=== PATIENT | female | born 2000 | race Caucasian/White ===

== ENCOUNTER 2025-05-08 20:10 | Inpatient (IN) | payer BC, SELFPAY ==
[2025-05-08 20:21] VITALS: BP 125/84; PULSE 104; O2SAT 97
[2025-05-08 20:25] VITALS: BP 144/85; PULSE 105; RESP 16; TEMP 36.6; O2SAT 97
[2025-05-08 21:27] VITALS: BMI 19.5
[2025-05-08 22:20] LABS: Hematocrit 43.3 % (37.0-47.0); Hemoglobin 15.2 g/dl (12.0-16.0); Imm Gran Abs Auto 0.02 X10*3/uL (0.00-0.03); Imm Gran Pct Auto 0.2 % (0.0-0.4); Lymphocytes Absolute Auto 3.7 X10*3/uL (1.2-4.9); MANUAL DIFF FLAG NO; Mean Corpuscular HGB Conc 35.1 g/dl (31.0-35.0); Mean Corpuscular Hemoglobin 31.5 pg (27.0-33.0); Mean Corpuscular Volume 89.6 fL (80.0-98.0); NRBC Abs Auto 0.000 X10*3/uL (0.0-0.012); NRBC Pct Auto 0.0 /100WBC (0.0-0.2); Platelet Count 298 X10*3/uL (160-400); Red Blood Count 4.83 X10*6/uL (4.20-5.50); White Blood Count 9.9 X10*3/uL (4.8-10.8)
--- OUTSIDE RECORDS SUMMARY | 2025-05-08 22:23 | XMS_ITS | Encounter Summary ---
Author Organization [facility] Address [address] [place] [phone] Phone Care Team Providers Care Boiler Installer Name Role Phone Unavailable Primary Care Provider Unavailabl e Encounter Details Date Type Department Care Team (Late st Contact Info) Description 03/20/2017 Conversion Encounter [facility] - [address] [address] Social History Tobacco Use Types Packs/Day Years Used Date Smoking Tobacco: Never Comments:Never smoker Comments Unknown Sex and Gender Information Value Date Recorded Sex Assigned at Not on file Legal Sex Female 5:23 PM EDT Gender Identity Not on file Sexual Orientation Not on file documented as of this encounter Plan of Treatment Not on file documented as of this encounter Visit Diagnoses Not on filedocumented in this encounter
--- OUTSIDE RECORDS SUMMARY | 2025-05-08 22:23 | XMS_ITS | Encounter Summary ---
Author Organization [facility] Address [address] [place] [address] Phone Care Team Providers Care Nylon Operator Name Role Phone Unavailable Primary Care Provider Unavailabl e Encounter Details Date Type Department Care Team (Late st Contact Info) Description 10/10/2016 Documentation [facility] Family Medicine [address] [place] [address] Family Medicine, Physician [address] [place] [address] Social History Tobacco Use Types Packs/Day Years [...]
--- OUTSIDE RECORDS SUMMARY | 2025-05-08 22:23 | XMS_ITS | Encounter Summary ---
Author Organization [facility] Address [address] [place] [phone] Phone Care Team Providers Care Brief Writer Name Role Phone Unavailable Primary Care Provider Unavailabl e Encounter Details Date Type Department Care Team (Late st Contact Info) Description 10/11/2016 Documentation [facility] Family Medicine [address] [place] [address] Family Medicine, Physician [address] [place] [address] Social History Tobacco Use Types Packs/Day Years [...]
--- OUTSIDE RECORDS SUMMARY | 2025-05-08 22:23 | XMS_ITS | Encounter Summary ---
Author Organization [facility] Address [address] [place] [address] Care Team Providers Care Sidewalk Repairer Name Role Phone Pamela Laboy MD Primary Care Provider [phone] Encounter Details Date Type Department Care Team (Late st Contact Info) Description 04/20/2025 Telephone [facility] - [facility] [address] [facility] [address] [place] [address] Pamela Laboy MD [address] [facility] [address] [place] [address] Social History Tobacco Use Types Packs/Day Years Used Date Smoking Tobacco: Former Smokeless Tobacco: Current Alcohol Use Standard Drinks/Week Comments Yes 0 (1 standard drink = 0.6 oz pur e alcohol) Comments No Sex and Gender Information Value Date Recorded Sex Assigned at Female 09/17/2024 2:27 PM EST Legal Sex Female 5:14 AM EST Gender Identity Female 09/17/2024 2:27 PM EST Sexual Orientation Not on file 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 Referral completed and closed. Thank you. documented in this encounter Plan of Treatment Not on file documented as of this encounter Visit Diagnoses Not on filedocumented in this encounter Care Teams Sidewalk Repairer Relationship Specialty Start Date End Date Pamela Laboy MD [address] [place] [address] PCP - General Internal Medicine 01/17/25 documented as of this encounter
--- OUTSIDE RECORDS SUMMARY | 2025-05-08 22:23 | XMS_ITS | Clinical Summary ---
Author Organization [facility] Address [address] [place] [address] Phone Care Team Providers Care Art Dealer Name Role Phone Unavailable Primary Care Provider Unavailabl e Allergies No known active allergies Medications TRI-PREVIFEM 0.18/0.215/0.25 MG-35 MCG per tabletIndication s:Pyelonephritis Take 1 tablet by mouth daily. 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 Vitamin D deficiency 11/13/2012 Intermittent asthma, well controlled 11/13/2012 Immunizations Immunization Administration Dates Next Due DTaP 5 04/14/2003, 1,1999,07/31,1999 HPV, Quadrivalent 04/22/2012,12/12/2010,10/12/19 11 Hep A, ped/adol 02/07/2015,11/09/2013 Hep B, ped/adol 10/02/2000,03/31/2000,1999 Hib (PRP-T) 07/10/2000, 0,1999,05/31 IPV 04/14/2003, 1,1999,05/31 Influenza Split 04/22/2012,10/11/2010 Influenza, injectable, quadrivalent 05/29/2016 Influenza, injectable, quadr ivalent, preservative free 04/19/2015,04/06/2014 MMR 04/14/2003,03/31/2000 Meningococcal Conj (Menactra) MCV4P 05/29/2016,0 10/11/2010 Pneumococcal Conjugate 07/10/2000,03/31/2000 Tdap 10/11/2010 Varicella 10/19/2007,03/31/2000 Family History Relation Name Status Comments Father Father: Elevate d cholesterol, Asthma, heart attack Mother Alive Mother: Alive a nd well Other Family history of ADD/ADHD Social History Tobacco Use Types Packs/Day Years Used Date Smoking Tobacco: Never Smokeless Tobacco: Never Comments:Never smoker, but d oes vape Comments Unknown Sex and Gender Information Value Date Recorded Sex Assigned at Not on file Legal Sex Female 5:23 PM EDT Gender Identity Not on file Sexual Orientation Not on file Last Filed Vital Signs Vital Sign Reading Time Taken Comments Blood Pressure 138/83 06/23/2017 2:47 PM EST Pulse 72 06/23/2017 2:47 PM EST Temperature 36.7 C (98 F) 06/23/2017 2:47 PM EST Respiratory Rate - - Oxygen Saturation - - Inhaled Oxygen Concentration - - Weight 51.4 kg (113 lb 6 oz) 06/23/2017 2:47 PM EST Height 152.4 cm (5') 04/14/2017 4:05 PM EDT Body Mass Index 22.14 04/14/2017 4:05 PM EDT Plan of Treatment Health Maintenance Due Date Last Done Comments DTaP,Tdap,and Td Vaccines (7 - Td or Tdap) 10/11/2020 10/11/2010, 04/14/2003, 10/02/2000, Additional history exists Influenza Vaccines (#1) 2025 05/29/20 16, 04/19/2015, 04/06/2014, Additional history exists COVID-19 Vaccine ( season) 2025 HIB Vaccines Completed 07/10/2000, 09/05, 1999, Additional history exists Pneumococcal Vaccine Completed 07/10/2000, 03/31/20 00 Hepatitis B Vaccines Completed 10/02/2000, 03/31/2000, 1999 IPV Vaccines Completed 04/14/2003, 08/2000, 1999, Additional history exists MMR Vaccines Completed 04/14/2003, 03/31/2000 Varicella Vaccines Completed 10/19/2007, 03/31/2000 HPV Vaccines Completed 04/22/2012, 12/02, 10/11/2010 Hepatitis A Vaccines Completed 02/07/2015, 11/10/19 14 Meningococcal Vaccine Completed 05/29/2016, 011 Men B Vaccine Aged Out No longer yaima lopez based on patient's age to complete this topic Procedures * Due to [facility] law, this organization might not be sharing sensitive test results. Procedure Name Priority Date/Time Associated Diagnosis Comments CHLAMYDIA AND GONORRHEA, AMPLIFIED Routine 06/23/2017 3:28 PM EST Encounter for other contraceptive management from Last 3 Months or Most Recently Relevant to Health Maintenance Results * Due to [employer] law, this organization might not be sharing sensitive test results. * Chlamydia and Gonorrhoea, Amplified (06/23/2017 3:28 PM EST) Chlamydia Trachomatis, DNA Probe NEGATIVE (NEG) [facility] Comment: No Chlamydia Trachomatis RNA detected in this patient's sample (REFERENCE RANGE/NORMAL VALUE: NOT DETECTED) Note: This test uses import/export clerk- mediated amplification method to detect rRNA from C. Trachomatis URINE GC AMP PROBE NEGATIVE (NEG) [facility] Comment: No Neisseria Gonorrhoeae RNA detected in this patient's sample (REFERENCE RANGE/NORMAL VALUE: NOT DETECTED) NOTE: This test uses import/export clerk-mediated amplification method to detect rRNA from N.Gonorrhoeae. A negative result does not preclude infection. In the case of a negative urine result, testing of an endocervical(female) or urethral (male) specimen is recommended if there is high clinical suspicion of infection. Due to very high sensitivity of Nucleic Acid Amplification Test, false positive results may occur. Therefore, specimen handling is extremely important. In patients in whom the disease is unlikely, additional sample for testing should be considered after an initial positive result. The performance characteristics of this test have not been evaluated in children. The Aptima Combo2 assay is not intended for the evaluation of suspected sexual abuse or for other medico-legal indications. The ordering provider should assess if the patient had consensual sex without risk of sexual abuse. Consult the [facility] if needed. Contact phone number . Therapeutic failure or success cannot be determined with the Aptima Combo2 assay since nucleic acid may persist following appropriate antimicrobial therapy. The Centers for Disease Control and Prevention (CDC) recommends confirmatory retesting using culture or a different nucleic acid amplification test when positive results occur, if indicated. Testing performed or reported by [facility], a Service of [facility], [facility] [place] [address] [facility] [id number] Adam Ace MD, PhD, [employer] Spray Supervisor 06/23/2017 3:28 PM EST 06/24/2017 12:45 AM EST Rylee Hurst MD LAB MICROBIOLOGY - GENERAL ORDER PAULO Final Result [facility] from Last 3 Months or Most Recently Relevant to Health Maintenance Insurance [place] [id number] [facility] PPO
--- OUTSIDE RECORDS SUMMARY | 2025-05-08 22:23 | XMS_ITS | Encounter Summary ---
Author Organization [facility] Address [address] [place] [address] Phone Care Team Providers Care Hr Systems Analyst Name Role Phone Unavailable Primary Care Provider Unavailabl e Encounter Details Date Type Department Care Team (Late st Contact Info) Description 12/22/2009 Documentation [facility] [place] [facility] [place] [address] Family Medicine, Physician [address] [place] [phone] Social History Tobacco Use Types Packs/Day Years Used Date Smoking Tobacco: Never Assessed Comments Unknown Sex and Gender Information Value Date Recorded Sex Assigned at Not on file Legal Sex Female 5:23 PM EDT Gender Identity Not on file Sexual Orientation Not on file documented as of this encounter Plan of Treatment Not on file documented as of this encounter Visit Diagnoses Not on filedocumented in this encounter
--- OUTSIDE RECORDS SUMMARY | 2025-05-08 22:23 | XMS_ITS | Clinical Summary ---
Author Organization [facility] [address] [place] [address] [place] [phone] Phone Care Team Providers Care Adobe Flex Developer Name Role Phone Pamela Laboy MD Primary Care Provider [phone] Allergies No known active allergies Medications amLODIPine (NORVASC) 5 mg tablet Take 1 tablet (5 mg total) by mouth 1 (one) time each day. 5 Active lisinopriL (PRINIVIL,ZESTR IL) 20 mg tablet Take 1 tablet (20 mg total) by mouth 1 (one) time each day. 4 Active dicyclomine (BENTYL) 10 mg capsuleIndicati ons:Irritable bowel syndrome with diarrhea Take 1 capsule (10 mg total) by mouth 3 (three) times a day. 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 Intermittent asthma, well controlled 11/13/2012 Vitamin D deficiency 11/13/2012 Encounters Date Type Department Care Team Description 04/20/2025 Telephone [facility] [address] [place] [phone] Pamela Laboy MD 02/10/2025 Telephone [facility] - [facility] [address] [facility] [address] [place] [address] Olga Lidia Penny NP from Last 3 Months Immunizations Immunization Administration Dates Next Due DTaP 5 pertussis antigens, D iptheria Tetanus acellular pertussis (Daptacel) 6wks to less than 7yo 04/14/2003,10/02/2000,1999,07/31,1999 HPV, Quadrivalent 04/22/2012,12/12/2010,10/12/19 11 Hep A, Unspecified 02/07/2015,11/09/2013 Hepatitis A Pediatric (Havri x; Vaqta) 12mo to less than 19yo 02/07/2015,11/09/2013 Hepatitis B Pediatric (Enger ix B; Recombivax HB) to less than 20 yo 10/02/2000,03/31/2000,1999 HiB PRP-T conjugate (Acthib, Hiberix) 6wks and older 07/10/2000,1999,1999,05/31 IPV Inactivated polio (Ipol) 6wks and older 04/14/2003,10/02/2000,1999,05/31 Influenza Quadrivalent, 0.5m l, preservative free (Fluarix; FluLaval; Fluzone) ages 6mo and older (Afluria) 3yo and older 04/19/2015,04/06/2014 Influenza Quadrivalent, with preservative (Fluzone; Afluria) 6mo and older 05/29/2016 Influenza Split 04/22/2012,10/11/2010 Influenza trivalent, 0.5mL, preservative free (Fluarix; FluLaval; Fluzone) ages 6mo and older (Afluria) 3 years and older 06/22/2020 Influenza trivalent, with pr eservative (Fluzone; Afluria) 6mo and older 09/03/2018 MMR, measles mumps and rubel la Live (Priorix; M-M-R II) 12mo and older 10/20/2020,04/14/2003,03/31/2000 Meningococcal MCV4P 05/29/2016,10/11/2010 Pneumococcal Conjugate Vacci ne, 7 Valent 07/10/2000,03/31/2000 Td, Unspecified 10/11/2010 Tdap Tetanus diptheria acell ular pertussis (Boostrix; Adacel) 7yo and older 08/17/2020,10/11/2010 Varicella live (Varivax) 12m o and older 10/19/2007,03/31/2000 Surgical History Surgery Date Site/Laterality Comments OTHER SURGICAL HISTORY PROCEDURE: DENIES PREVIOUS SURGERY Medical History Medical History Date Comments HTN (hypertension) Family History Medical History Relation Name Comments Hypertension Brother Heart disease Father Hypertension Father Psoriasis Father No Known Problems Mother Relation Name Status Comments Brother Alive Father Alive Mother Alive Social History Tobacco Use Types Packs/Day Years Used Date Smoking Tobacco: Former Smokeless Tobacco: Current Tobacco Cessation:Ready to Q uit: Not Asked Alcohol Use Standard Drinks/Week Comments Yes 0 (1 standard drink = 0.6 oz pur e alcohol) Comments No Sex and Gender Information Value Date Recorded Sex Assigned at Female 09/17/2024 2:27 PM EST Legal Sex Female 5:14 AM EST Gender Identity Female 09/17/2024 2:27 PM EST Sexual Orientation Not on file 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 Not on file Not on file Obstetrics History Para Term AB IAB SAB Ectopic Multiple Livin g Live Births 1 1 1 0 0 0 1 1 Date Outcome GA Total Labor Labor/2nd/3rd Weight Sex Type Anes PTL Kimi A1 A5 Name Clin 021 Term 37w 0d M Vag-S pont Living Complications:Gestational hy pertension Last Filed Vital Signs Vital Sign Reading Time Taken Comments Blood Pressure 135/75 01/18/2025 3:23 PM EDT Pulse 85 01/18/2025 3:23 PM EDT Temperature - - Respiratory Rate 14 01/18/2025 3:23 PM EDT Oxygen Saturation - - Inhaled Oxygen Concentration - - Weight 65 kg (143 lb 3.2 oz) 01/18/2025 3:23 PM EDT Height 152.4 cm (5') 01/06/2025 2:28 PM EDT Body Mass Index 27.97 01/06/2025 2:28 PM EDT Plan of Treatment Health Maintenance Due Date Last Done Comments Pneumococcal Vaccine: Pediatrics (0 to 5 Years) and At-Risk Patients (6 to 49 Years) (1 of 1 - PPSV23, PCV20, or PCV21) 2005 07/10/2000, 03/31/2000 HIV Screening 06/22/2024 Hepatitis C Screening 06/22/2024 Social Influencers of Health Screening 06/22/2024 Depression Screening 08/04/2024 COVID-19 Vaccine ( season) 2025 Influenza Vaccine (#1) 2025 , 09/03/2018, 05/29/2016, Additional history exists Cervical Cancer Screening: Pap Smear 01/07/2028 01/06/2025 Cholesterol Screening (Lipid Panel) 08/25/2029 08/25/2024 DTaP,Tdap,and Td Vaccines (9 - Td or Tdap) 08/17/2030 08/17/2020, 10/11/2010, 10/11/2010, Additional history exists RSV Immunization Adult Patients (1 - 1-dose 75+ series) 2074 HIB Vaccines Completed 07/10/2000, 09/05, 1999, Additional history exists Hepatitis B Vaccines Completed 10/02/2000, 03/31/2000, 1999 IPV Vaccines Completed 04/14/2003, 08/2000, 1999, Additional history exists Varicella Vaccines Completed 10/19/2007, 03/31/2000 HPV Vaccines Completed 04/22/2012, 12/02, 10/11/2010 Hepatitis A Vaccines Completed 02/07/2015, 02/07/2015, 11/09/2013, Additional history exists Meningococcal ACWY Vaccine Completed 05/29/2016, MMR Vaccines Completed 10/20/2020, 04/04, 03/31/2000 Gonorrhea/Chlamydia Screening Discontinued 09/08/2024 Meningococcal B Vaccine Aged Out No l onger eligible based on patient's age to complete this topic RSV Immunization Patients Under 20 months Aged Out No longer eligible based on patient's age to complete this topic Procedures Procedure Name Priority Date/Time Associated Diagnosis Comments PAP SMEAR Routine 01/06/2025 2:51 PM EDT Encounter for well woman exam with routine gynecological exam Screening for cervical cancer CHLAMYDIA TRACHOMATIS AND NEISSERIA GONORRHOEAE PCR Routine 09/08/2024 4:04 PM EST Dysmenorrhea DUB (dysfunctional uterine bleeding) LIPID PANEL WITH REFLEX TO DIRECT LDL Routine 08/25/2024 8:29 AM EST Essential (primary) hypertension Breanna-Danlos syndrome, unspecified Irritable bowel syndrome, unspecified Pain in unspecified joint from Last 3 Months or Most Recently Relevant to Health Maintenance Results * Pap smear (01/06/2025 2:51 PM EDT) Interpretation Negative for intraepithelial lesion or malignancy 01/10/2025 5:05 PM [facility] General Categorization Negative 01/10/2025 5:05 PM [facility] Specimen Adequacy Satisfactory for evaluation, endocervical/roberts sformation zone component present [facility] Methodology Liquid Based Pap Test [facility] Disclaimer The Pap test is a screening test which carries an inherent false negative rate. These test results should be correlated with the patient's clinical findings and history. This Pap test was processed using an automated screening system. Technical cytopathology services provided by [facility], at [address] [place] [address], [place] [address] (CLIA # [id number]/Romulo Monahan MD, Multiple Knife Edge Trimmer Operator.) 01/10/2025 5:05 PM [facility] Console Pap Interpretation Reported 01/10/2025 5:05 PM [facility] Brushing/Spatula Cervix uteri structure / Unknown 01/06/2025 2:51 PM EDT 01/07/2025 6:43 AM EDT Keren [facility]JI LAB CYTOLOGY ORDERABLES Final Result Performing Organization Address [facility]/ZIP Co de Phone Number [facility] [address] [place] [address], [place] [phone] * Chlamydia trachomatis and Neisseria gonorrhoeae molecular study (09/08/2024 4:04 PM EST) [facility] Neisseria gonorrhoeae PCR Negative Negative LAB MOLECULAR DIAGNOSTICS METHOD 09/09/2024 12:01 PM [facility] Chlamydia trachomatis PCR Negative Negative LAB MOLECULAR DIAGNOSTICS METHOD 09/09/2024 12:01 PM [facility] Swab Cervix uteri structure / Unknown Non-blood Collection / Unknown 09/08/2024 4:04 PM EST 09/08/2024 4:18 PM EST Keren [facility]JI LAB MICROBIOLOGY - GENERAL OR DERABLES Final Result Performing Organization Address [facility]/ZIP Co de Phone Number [facility] [address] [place] [address], [place] [phone] * (ABNORMAL) Lipid panel with reflex to direct LDL (08/25/2024 8:29 AM EST) [facility] Cholesterol 184 0 - 200 mg/dL LAB CHEMISTRY METHOD 08/25/2024 4:14 PM [facility] Triglycerides 211(H) 0 - 150 mg/dL LAB CHEMISTRY METHOD 08/25/2024 4:14 PM [facility] HDL 63 >=40 mg/dL LAB CHEMISTRY METHOD 08/25/2024 4:14 PM [facility] LDL Calculated 79 0 - 100 mg/dL LAB CHEMISTRY METHOD 08/25/2024 4:14 PM EST [facility] VLDL Cholesterol [place] 42.2 mg/dL LAB CHEMISTRY METHOD 08/25/2024 4:14 PM EST [facility] Non HDL Chol. (LDL+VLDL) 121 <145 mg/dL LAB CHEMISTRY METHOD 08/25/2024 4:14 PM EST [facility] Chol/HDL Ratio 2.9 0.0 - 4.4 LAB CHEMISTRY METHOD 08/25/2024 4:14 PM EST [facility] Blood Venous blood specimen / Unknown 08/25/2024 8:29 AM EST 08/25/2024 12:33 PM EST us Olga Lidia Penny ELECTRONIC CONSOLE DISPLAY OPERATOR LAB BLOOD ORDERABLES Final Res ult [facility] [address] [place] [address], from Last 3 Months or Most Recently Relevant to Health Maintenance Insurance Care Teams Adobe Flex Developer Relationship Specialty Start Date End Date Pamela Laboy MD [address] [place] [phone] PCP - General Internal Medicine 01/17/25
--- OUTSIDE RECORDS SUMMARY | 2025-05-08 22:24 | XMS_ITS | Encounter Summary ---
Author Organization [facility] Address [address] [place] [address] Care Team Providers Care Scientific Process Operator Name Role Phone Pamela Laboy MD Primary Care Provider [phone] Encounter Details Date Type Department Care Team (Late st Contact Info) Description 08/25/2024 Lab Requisition [facility] - Main Lab [address] [facility] [place] [address] Olga Lidia Penny NP [address] [place] [address] [place] [id number] Essential (primary) hypertension; Breanna-Danlos syndrome, unspecified; Irritable bowel syndrome, unspecified; Pain in unspecified joint Social History Tobacco Use Types Packs/Day Years Used Date Smoking Tobacco: Former Smokeless Tobacco: Never Alcohol Use Standard Drinks/Week Comments Yes 0 (1 standard drink = 0.6 oz pur e alcohol) Comments Unknown Sex and Gender Information Value Date Recorded Sex Assigned at Female 09/17/2024 2:27 PM EST Legal Sex Female 5:14 AM EST Gender Identity Female 09/17/2024 2:27 PM EST Sexual Orientation Not on file documented as of this encounter Plan of Treatment Not on file documented as of this encounter Procedures Procedure Name Priority Date/Time Associated Diagnosis Comments LIPID PANEL WITH REFLEX TO DIRECT LDL Routine 08/25/2024 8:29 AM EST Essential (primary) hypertension Breanna-Danlos syndrome, unspecified Irritable bowel syndrome, unspecified Pain in unspecified joint BERTHA IFA WITH TITER AND PATTERN Routine 08/25/2024 8:29 AM EST Essential (primary) hypertension Breanna-Danlos syndrome, unspecified Irritable bowel syndrome, unspecified Pain in unspecified joint CBC WITH AUTO DIFFERENTIAL Routine 08/25/2024 8:29 AM EST Essential (primary) hypertension Breanna-Danlos syndrome, unspecified Irritable bowel syndrome, unspecified Pain in unspecified joint VITAMIN D 25 HYDROXY Routine 08/25/2024 8:29 AM EST Essential (primary) hypertension Breanna-Danlos syndrome, unspecified Irritable bowel syndrome, unspecified Pain in unspecified joint CBC AND DIFFERENTIAL Routine 08/25/2024 8:29 AM EST Essential (primary) hypertension Breanna-Danlos syndrome, unspecified Irritable bowel syndrome, unspecified Pain in unspecified joint RHEUMATOID FACTOR Routine 08/25/2024 8:2 9 AM EST Essential (primary) hypertension Breanna-Danlos syndrome, unspecified Irritable bowel syndrome, unspecified Pain in unspecified joint THYROID STIMULATING HORMONE Routine 08/25/2024 8:29 AM EST Essential (primary) hypertension Breanna-Danlos syndrome, unspecified Irritable bowel syndrome, unspecified Pain in unspecified joint THYROXINE FREE Routine 08/25/2024 8:29 AM EST Essential (primary) hypertension Breanna-Danlos syndrome, unspecified Irritable bowel syndrome, unspecified Pain in unspecified joint COMPREHENSIVE METABOLIC PANEL Routine 08/25/2024 8:29 AM EST Essential (primary) hypertension Breanna-Danlos syndrome, unspecified Irritable bowel syndrome, unspecified Pain in unspecified joint documented in this encounter Results * (ABNORMAL) CBC auto differential (08/25/2024 8:29 AM EST) [facility] Signature WBC 4.2(L) 4.8 - 10.8 K/mcL LAB HEMETOLOGY METHOD 08/25/2024 12:47 PM EST [facility] LAB RBC 4.10 3.80 - 4.80 M/mcL LAB HEMETOLOGY METHOD 08/25/2024 12:[address] [facility] Hemoglobin 12.9 11.5 - 16.0 g/dL LAB HEMETOLOGY METHOD 08/25/2024 12:[address] [facility] Hematocrit 39.1 35.0 - 47.0 % LAB HEMETOLOGY METHOD 08/25/2024 12:[address] [facility] MCV 95.1 79.0 - 98.0 FL LAB HEMETOLOGY METHOD 08/25/2024 12:[address] [facility] MCH 31.4 27.0 - 32.0 pcg LAB HEMETOLOGY METHOD 08/25/2024 12:[address] [facility] MCHC 33.0 32.0 - 37.0 g/dL LAB HEMETOLOGY METHOD 08/25/2024 12:[address] [facility] RDW 12.5 11.0 - 15.0 % LAB HEMETOLOGY METHOD 08/25/2024 12:[address] [facility] Platelets 299 130 - 400 K/mcL LAB HEMETOLOGY METHOD 08/25/2024 12:[address] [facility] MPV 9.4 7.0 - 11.0 FL LAB HEMETOLOGY METHOD 08/25/2024 12:[address] [facility] NRBC 0.0 <1.0 % LAB HEMETOLOGY METHOD 08/25/2024 12:[address] [facility] NRBC Absolute 0.00 <0.10 K/mcL LAB HEMETOLOGY METHOD 08/25/2024 12:[address] [facility] Neutrophils Relative 35.4 % LAB HEMETOLOGY METHOD 08/25/2024 12:[address] [facility] Lymphocytes Relative 53.7 % LAB HEMETOLOGY METHOD 08/25/2024 12:[address] [facility] Monocytes Relative 8.1 % LAB HEMETOLOGY METHOD 08/25/2024 12:[address] [facility] Eosinophils Relative 2.1 % LAB HEMETOLOGY METHOD 08/25/2024 12:[address] [facility] Basophils Relative 0.5 % LAB HEMETOLOGY METHOD 08/25/2024 12:[address] [facility] Immature Granulocytes Relative 0.2 % LAB HEMETOLOGY METHOD 08/25/2024 12:[address] [facility] Neutrophils Absolute 1.48(L) 1.50 - 7.00 K/mcL LAB HEMETOLOGY METHOD 08/25/2024 12:[address] [facility] Lymphocytes Absolute 2.25 1.00 - 5.00 K/mcL LAB HEMETOLOGY METHOD 08/25/2024 12:[address] [facility] Monocytes Absolute 0.34 0.20 - 1.00 K/mcL LAB HEMETOLOGY METHOD 08/25/2024 12:[address] [facility] Eosinophils Absolute 0.09 0.00 - 0.50 K/mcL LAB HEMETOLOGY METHOD 08/25/2024 12:[address] [facility] Basophils Absolute 0.02 0.00 - 0.20 K/mcL LAB HEMETOLOGY METHOD 08/25/2024 12:[address] [facility] Immature Granulocytes Absolute 0.01 0.00 - 0.03 K/mcL LAB HEMETOLOGY METHOD 08/25/2024 12:[address] [facility] Blood Venous blood specimen / Unknown 08/25/2024 8:29 AM EST 08/25/2024 12:33 PM EST Olga Lidia Penny NP LAB BLOOD ORDERABLES Final Res ult [facility] [address] [place] [address], [place] [phone] * BERTHA IFA with titer and pattern (08/25/2024 8:29 AM EST) Pathologist [facility] BERTHA Negative Negative 08/26/2024 1:19 PM EST [facility] Blood Venous blood specimen / Unknown 08/25/2024 8:29 AM EST 08/25/2024 12:33 PM EST us Olga Lidia Penny STACKER LAB BLOOD ORDERABLES Final Res ult [facility] [address] [place] [address], [place] [phone] * (ABNORMAL) Vitamin D 25 hydroxy (08/25/2024 8:29 AM EST) [facility] Vit D, 25-Hydroxy 5.5(L) 30.0 - 80.0 ng/mL LAB CHEMISTRY METHOD 08/25/2024 4:37 PM EST [facility] Blood Venous blood specimen / Unknown 08/25/2024 8:29 AM EST 08/25/2024 12:33 PM EST us Olga Lidia Penny STACKER LAB BLOOD ORDERABLES Final Res ult [facility] [address] [place] [address], [place] [phone] * Thyroid stimulating hormone (08/25/2024 8:29 AM EST) [facility] TSH 0.85 0.40 - 4.00 mcIU/mL LAB CHEMISTRY METHOD 08/25/2024 4:21 PM EST [facility] Blood Venous blood specimen / Unknown 08/25/2024 8:29 AM EST 08/25/2024 12:33 PM EST us Olga Lidia Penny STACKER LAB BLOOD ORDERABLES Final Res ult Performing Organization Address [facility]/ZIP Co de Phone Number [facility] [address] [place] [address], [place] [phone] * Thyroxine free (08/25/2024 8:29 AM EST) [facility] Free T4 1.18 0.70 - 1.80 ng/dL LAB CHEMISTRY METHOD 08/25/2024 4:21 PM EST [facility] Blood Venous blood specimen / Unknown 08/25/2024 8:29 AM EST 08/25/2024 12:33 PM EST Olga Lidia Penny NP LAB BLOOD ORDERABLES Final Res ult Performing Organization Address [facility] de Phone Number [facility] [address] [place] [address], [place] [phone] * Rheumatoid factor (08/25/2024 8:29 AM EST) [facility] Rheumatoid Factor <10.0 <15.0 I Unit/mL LAB CHEMISTRY METHOD 08/25/2024 4:14 PM EST [facility] Blood Venous blood specimen / Unknown 08/25/2024 8:29 AM EST 08/25/2024 12:33 PM EST Olga Lidia Penny LAB BLOOD ORDERABLES Final Res ult Performing Organization Address [facility] Co de Phone Number [facility] [address] [place] [address], [place] [phone] * (ABNORMAL) Lipid panel with reflex to direct LDL (08/25/2024 8:29 AM EST) [facility] Cholesterol 184 0 - 200 mg/dL LAB CHEMISTRY METHOD 08/25/2024 4:14 PM EST [facility] Triglycerides 211(H) 0 - 150 mg/dL LAB CHEMISTRY METHOD 08/25/2024 4:[address] [facility] HDL 63 >=40 mg/dL LAB CHEMISTRY METHOD 08/25/2024 4:[address] [facility] LDL Calculated 79 0 - 100 mg/dL LAB CHEMISTRY METHOD 08/25/2024 4:[address] [facility] VLDL Cholesterol [place] 42.2 mg/dL LAB CHEMISTRY METHOD 08/25/2024 4:[address] [facility] Non HDL Chol. (LDL+VLDL) 121 <145 mg/dL LAB CHEMISTRY METHOD 08/25/2024 4:[address] [facility] Chol/HDL Ratio 2.9 0.0 - 4.4 LAB CHEMISTRY METHOD 08/25/2024 4:[address] [facility] Blood Venous blood specimen / Unknown 08/25/2024 8:29 AM EST 08/25/2024 12:33 PM EST Olga Lidia Penny STACKER LAB BLOOD ORDERABLES Final Res ult [facility] [address] [place] [address], * Comprehensive metabolic panel (08/25/2024 8:29 AM EST) Sodium 135 133 - 145 mmol/L LAB CHEMISTRY METHOD 08/25/2024 4:[address] [facility] Potassium 4.1 3.5 - 5.5 mmol/L LAB CHEMISTRY METHOD 08/25/2024 4:[address] [facility] Chloride 106 96 - 110 mmol/L LAB CHEMISTRY METHOD 08/25/2024 4:[address] [facility] CO2 25 21 - 32 mmol/L LAB CHEMISTRY METHOD 08/25/2024 4:[address] [facility] Anion Gap 4 3 - 11 LAB CHEMISTRY METHOD 08/25/2024 4:[address] [facility] Glucose 95 70 - 100 mg/dL LAB CHEMISTRY METHOD 08/25/2024 4:[address] [facility] BUN 6 5 - 25 mg/dL LAB CHEMISTRY METHOD 08/25/2024 4:[address] [facility] Creatinine 0.56 0.50 - 1.10 mg/dL LAB CHEMISTRY METHOD 08/25/2024 4:[address] [facility] eGFR 130 >=60 mL/min/1. 73m2 LAB CHEMISTRY METHOD 08/25/2024 4:[address] [facility] Comment:Calculation based on the Chronic Kidney Disease Epidemiology Collaboration (CKD-EPI) equation refit without adjustment for race. BUN/Creatinine Ratio 10.7 LAB CHEMISTRY METHOD 08/25/2024 4:[address] [facility] Calcium 8.8 8.5 - 10.5 mg/dL LAB CHEMISTRY METHOD 08/25/2024 4:[address] [facility] AST (SGOT) 19 10 - 42 unit/L LAB CHEMISTRY METHOD 08/25/2024 4:[address] [facility] ALT (SGPT) 16 10 - 60 unit/L LAB CHEMISTRY METHOD 08/25/2024 4:[address] [facility] Alkaline Phosphatase 43 42 - 121 unit/L LAB CHEMISTRY METHOD 08/25/2024 4:[address] [facility] Total Protein 7.3 6.0 - 8.0 g/dL LAB CHEMISTRY METHOD 08/25/2024 4:[address] [facility] Albumin 3.9 3.2 - 5.0 g/dL LAB CHEMISTRY METHOD 08/25/2024 4:[address] [facility] Total Bilirubin 0.2 0.0 - 1.4 mg/dL LAB CHEMISTRY METHOD 08/25/2024 4:[address] [facility] Blood Venous blood specimen / Unknown 08/25/2024 8:29 AM EST 08/25/2024 12:33 PM EST us Olga Lidia Penny STACKER LAB BLOOD ORDERABLES Final Res ult [facility] [address] [place] [address], documented in this encounter Visit Diagnoses Diagnosis Essential (primary) hypertension Unspecified essential hypertension Breanna-Danlos syndrome, unspecified Irritable bowel syndrome, unspecified Pain in unspecified joint documented in this encounter Care Teams Scientific Process Operator Relationship Specialty Start Date End Date Pamela Laboy MD [address] [address] PCP - General Internal Medicine 01/17/25 documented as of this encounter
--- OUTSIDE RECORDS SUMMARY | 2025-05-08 22:24 | XMS_ITS | Clinical Summary ---
Author Organization [facility] Address [address] [facility] [address] [place] [phone] Phone Care Team Providers Care Dressing Machine Operator Name Role Phone Unavailable Primary Care Provider Unavailabl e Allergies No known active allergies Medications No known medications Active Problems No known active problems Social History Tobacco Use Types Packs/Day Years Used Date Smoking Tobacco: Never Smokeless Tobacco: Never Tobacco Cessation:Counseling Given: Not Answered Education Answer Date Recorded Are you interested in more education? Not on emily e 09/26/2023 Are you concerned about learning? Not on file 09/26/2023 No 09/26/2023 No 09/26/2023 Digital Access Answer Date Recorded No 09/26/2023 No 09/26/2023 Reliable internet access at home? Not on file 09/26/2023 Device with a working camera? Not on file Comments Unknown Sex and Gender Information Value Date Recorded Sex Assigned at Not on file Legal Sex Female 3:46 PM EST Gender Identity Not on file Sexual Orientation Not on file Last Filed Vital Signs Vital Sign Reading Time Taken Comments Blood Pressure 120/76 09/26/2023 3:54 PM EST Pulse 76 09/26/2023 3:54 PM EST Temperature - - Respiratory Rate 16 09/26/2023 3:54 PM EST Oxygen Saturation 99% 09/26/2023 3:54 PM EST Inhaled Oxygen Concentration - - Weight 52.2 kg (115 lb) 09/26/2023 3:54 PM EST Height 157.5 cm (5' 2 ) 09/26/2023 3:54 PM EST Body Mass Index 21.03 09/26/2023 3:54 PM EST Plan of Treatment Health Maintenance Due Date Last Done Comments DEPRESSION SCREENING 2011 HPV VACCINES (1 - 3-dose series) 2014 HEPATITIS C SCREENING 2017 HIV ONE-TIME SCREENING (18-6 5 YEARS) 2017 PAP SMEAR 2020 Adult Td,Tdap Booster 10/11/2020 10/11/2010 INFLUENZA VACCINE (#1) 2025 SMOKING STATUS SCREENING (On ce After 26 Yrs) 2025 COVID-19 VACCINE (2023-2 5 season) 2025 HEPATITIS A VACCINES Aged Out No long er eligible based on patient's age to complete this topic HIB VACCINES Aged Out No longer eligi ble based on patient's age to complete this topic MENINGOCOCCAL VACCINES (ACWY) Aged Out No longer eligible based on patient's age to complete this topic MENINGOCOCCAL VACCINES (B) Aged Out N o longer eligible based on patient's age to complete this topic PNEUMOCOCCAL VACCINES (0-49 years) Aged Out No longer eligible based on patient's age to complete this topic Medical Devices Not on file Additional Source Comments The information contained in this document represents components of the legal health record. It is not the complete legal health record.[facility]
[2025-05-08 22:30] LABS: Cannabinoid Screen Urine POSITIVE (Not Detect)
[2025-05-08 22:36] LABS: Anion Gap 20 (12-20); Blood Urea Nitrogen 6 mg/dL (9-16); Calcium 9.6 mg/dL (8.4-10.2); Carbon Dioxide 17 mmol/L (22-29); Chloride 103 mmol/L (96-108); Creatinine Clr Calc Pharmacy 103.3; Estimated Glomerular Filt Rate > 60; Potassium 3.0 mmol/L (3.3-5.1); Sodium 137 mmol/L (135-145)
[2025-05-08 23:19] LABS: Magnesium 1.8 mg/dL (1.6-2.6)
[2025-05-08] MEDS: Potassium Chloride Packet 20 MEQ PACKET 60 MEQ PO (23:21)
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
[2025-05-09 00:59] LABS: Appearance Urine Clear; Glucose Urine UA Negative (Negative); PH 6.5 (5.0-9.0); Specific Gravity - Urine 1.015 (1.005-1.025)
[2025-05-09 01:00] LABS: UPreg QC Valid YES
[2025-05-09 04:07] VITALS: BP 118/78; PULSE 81; RESP 16; TEMP 36.4; O2SAT 98
[2025-05-09 04:32] LABS: Acetaminophen LAB < 3 mcg/mL (<30); Salicylate < 5.0 mg/dL (15-30)
--- NOTE | 2025-05-09 07:26 | PC.NURSE ---
Assumed care, report received. Pt is awake, calm and cooperative. she has had breakfast, and is currently in the shower. She is tearful this morning and reports anxiety. she denies SI at this time.
[2025-05-09 08:48] VITALS: BP 121/76; PULSE 77; RESP 14; O2SAT 100
--- NOTE | 2025-05-09 10:00 | MHC.CARE ---
Pt will be an inpatient bedsearch
[2025-05-09 14:31] VITALS: BP 140/75; PULSE 76; RESP 16; TEMP 36.1; O2SAT 97
[2025-05-09 17:56] VITALS: BMI 23.1
[2025-05-09 17:58] VITALS: BP 131/81; PULSE 88; RESP 18; TEMP 36.5; O2SAT 97
[2025-05-09 18:04] LABS: Potassium 3.9 mmol/L (3.3-5.1)
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
[2025-05-09 20:20] VITALS: BP 131/69; PULSE 98; RESP 16; TEMP 36.9; O2SAT 96
[2025-05-09 20:24] VITALS: BP 131/69
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
[2025-05-10 08:00] VITALS: BP 123/79; PULSE 94; TEMP 36.9; O2SAT 98
[2025-05-10 09:18] LABS: Hemoglobin A1C 105.5556 umol/L; Total Hemoglobin (HGBA1C) 3755.0614 umol/L
[2025-05-10 09:33] LABS: Alanine Aminotransferase 20 U/L (0-31); Albumin Level 4.8 g/dL (3.5-5.0); Alkaline Phosphatase 39 U/L (39-117); Anion Gap 15 (12-20); Aspartate Amino Transferase 30 U/L (5-31); Blood Urea Nitrogen 8 mg/dL (9-16); Calcium 9.5 mg/dL (8.4-10.2); Carbon Dioxide 24 mmol/L (22-29); Chloride 103 mmol/L (96-108); Cholesterol 167 mg/dL (<200); Creatinine Clr Calc Pharmacy 110.2; Estimated Glomerular Filt Rate > 60; HDL Cholesterol 67 mg/dL (>40); Magnesium 1.8 mg/dL (1.6-2.6); Potassium 3.9 mmol/L (3.3-5.1); Sodium 138 mmol/L (135-145); Total Protein 7.8 g/dL (6.5-8.0); Triglycerides 161 mg/dL (<150)
[2025-05-10 09:44] LABS: Free T4 (Free Thyroxine) 1.14 ng/dL (0.71-1.85); Thyroid Stimulating Hormone 1.71 uIU/mL (0.32-4.0)
[2025-05-10 10:00] LABS: Folate 10.9 ng/mL (> or = 4.0); Vitamin B12 331 pg/mL (200-900)
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
--- NOTE | 2025-05-10 14:48 | HO.PM.IMCN ---
History of Present Illness Data of Consult Service Date: 05/10/25 Primary Care Provider: NISHA Neal HPI Reason for consult: Medical management 25-year-old female with a past medical history of anxiety and hypertension presented to the ED for suicidal ideation. In the ED her CBC was without leukocytosis, no anemia, she demonstrates some hypokalemia which was replaced, normal magnesium. No other electrolyte imbalances. No evidence of acute kidney injury. Ethanol level 165, urine toxicology positive for marijuana. There were negative for or infection. She denies any medical concerns at this time. Review of Systems Review of Systems: Denies any shortness of breath, chest pain, palpitations, dizziness, headaches, dysuria, abdominal pain or discomfort, nausea, vomiting or diarrhea. [facility] Social History Household Members: Spouse and Children Housing: House Do you presently have visiting nurse or other home services: No Patient Tobacco Use Status: Never used Tobacco Smoked in Last 30 Days: Yes e-Cigarette/Vaping Use: Currently Using Frequency of e-Cigarette/Vaping Use: a few times a day Patient Interested in Nicotine Replacement: No Patient Given Instructions on How to Stop Smoking: No Second Hand Smoke Exposure: No Use of substances other than those prescribed or required for medical reasons: No Currently Displaying Signs/Symptoms of Drug Intoxication Withdrawal: No Have you been hit, kicked, punched, or otherwise hurt by someone within the past year? If so, by whom?: No Do you feel safe in your current relationship?: Yes Is there a partner from a previous relationship who is making you feel unsafe now?: No Are you made to feel afraid or neglected: No Advance Directives: No Advance Directives Information Provided: No Advance Directives on File: No Do you have thoughts of harming others: None Do you have a plan to hurt others: No Plan Recently lost weight without trying: Yes How much weight loss: 2-13 pounds Eating poorly because of decreased appetite: Yes Nutrition screen score: 4 Nutrition Risks: No Nutritional Risk Patient : No : No Poor oral hygiene: No service: No Sexual orientation: Straight/Heterosexual Meds Allergies Allergy/AdvReac Type Severity Reaction Status Date / Time No Known Allergies Allergy Verified 05/08/25 21:59 Active Medications: Current Medications Acetaminophen (Acetaminophen 325 Mg Tablet) 650 mg PO Q6H PRN PRN Reason: Headache/Pain, Scale 1-10 Al Hydroxide/Mg Hydroxide (Magnesium Hydrox/Alum Hydrox 30 Ml Oral.Susp) 30 ml PO Q6H PRN PRN Reason: Heartburn/Nausea Amlodipine Besylate (Amlodipine Besylate 5 Mg Tablet) 5 mg PO DAILY ANKITA; Protocol Last Admin: 05/10/25 08:34 Dose: 5 mg Hydroxyzine HCl (Hydroxyzine Hcl 25 Mg Tablet) 25 mg PO TID PRN PRN Reason: Anxiety Last Admin: 05/10/25 11:57 Dose: 25 mg Lisinopril (Lisinopril 20 Mg Tablet) 20 mg PO DAILY ANKITA; Protocol Last Admin: 05/10/25 08:34 Dose: 20 mg Lorazepam (Lorazepam 1 Mg Tablet) 1 mg PO Q4H PRN PRN Reason: Anxiety Last Admin: 05/09/25 20:24 Dose: 1 mg Magnesium Hydroxide (Milk Of Magnesia 30 Ml Oral.Susp) 30 ml PO DAILY PRN PRN Reason: Constipation Mirtazapine (Mirtazapine 15 Mg Tablet) 15 mg PO BEDTIME ANKITA Last Admin: 05/09/25 20:24 Dose: 15 mg Nicotine Polacrilex (Nicotine Polacrilex 2 Mg Gum) 4 mg BUCCAL Q2H PRN PRN Reason: Nicotine Cravings Prazosin HCl (Prazosin Hcl 1 Mg Capsule) 1 mg PO BEDTIME ANKITA; Protocol Last Admin: 05/09/25 20:24 Dose: 1 mg Trazodone HCl (Trazodone Hcl 50 Mg Tablet) 50 mg PO BEDTIME MRX1 PRN PRN Reason: Insomnia Last Admin: 05/09/25 20:24 Dose: 50 mg Home Medications ?Medication ?Instructions ?Recorded ?Confirmed ?Last Taken ?Type amlodipine 5 mg tablet 5 mg PO DAILY 05/09/25 05/09/25 05/07/25 History hydroxyzine HCl 10 mg tablet 10 mg PO TID PRN anxiety 05/09/25 05/09/25 05/07/25 History lisinopril 20 mg tablet 20 mg PO DAILY 05/09/25 05/09/25 05/07/25 History Physical Exam Vital Signs and Narrative: Vital Signs: Last Vital Signs Temp 98.4 F 05/10/25 08:00 Pulse 94 05/10/25 08:00 Resp 16 05/09/25 20:20 BP 123/79 05/10/25 08:00 Pulse Ox 98 05/10/25 08:00 O2 Del Method Room Air 05/10/25 08:00 BMI result Body Mass Index 23.1 CONST: Alert and oriented, in NAD. Well nourished HEENT: Normocephalic, atraumatic, MMM, Eyes clear, Neck supple RESP: Lungs clear, RRR even and regular HEART:,RRR, S1, S2. No edema GI:Abdomen Soft NT, ND. + BS times four :Deferred SKIN: Warm dry and intact, no visible lesions or rashes NEURO:CN II-XII Intact bilaterally, Sensation intact. Speech clear PSYCH: Normal affect Results Labs 05/08/25 22:07 05/10/25 08:21 Labs: Laboratory Results - last 24 hr 05/10/25 08:21 Anion Gap 15 Estim Creat Clear Calc 110.2 Estimated GFR > 60 Random Glucose 134 H Estimat Average Glucose 88 Hemoglobin A1c % 4.7 Calcium 9.5 Magnesium 1.8 Total Bilirubin 0.5 AST 30 ALT 20 Alkaline Phosphatase 39 Total Protein 7.8 Albumin 4.8 Triglycerides 161 H Cholesterol 167 LDL Cholesterol, Calc 68 HDL Cholesterol 67 Vitamin B12 331 Folate 10.9 TSH 1.71 Free T4 1.14 Assessment and Plan (1) HTN (hypertension): Status: Acute Plan 25-year-old female admitted to inpatient psych after increased anxiety and suicidal ideation. Anxiety with suicide ideation Treatment per psychiatric team Hypertension Continue amlodipine and lisinopril Thank you for allowing me to participate in the care of this patient. Will follow as needed, please notify medical provider with any changes in condition or concerns.
[2025-05-10 20:33] VITALS: BP 143/85; PULSE 116; RESP 16; TEMP 36.9; O2SAT 98
[2025-05-10 20:41] VITALS: BP 143/85
[2025-05-10 22:07] VITALS: PULSE 82
[2025-05-11 07:57] VITALS: BP 145/83; PULSE 77; TEMP 37; O2SAT 99
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
[2025-05-11 20:00] VITALS: BP 130/76; PULSE 84; TEMP 36.3; O2SAT 99
[2025-05-11 21:44] VITALS: BP 130/76
[2025-05-12 00:08] LABS: Glucose, Whole Blood 138 mg/dL (60-115)
--- NOTE | 2025-05-12 00:37 | PC.NURSE ---
Patient had an unwitnessed fall at approximately 2345 in front of the M5 nurse's station. She reported that she fell on my butt, and denied pain or injury. Vital signs revealed her blood pressure was low, at 90/50. After having some juice and sitting for a few minutes, her blood pressure came up to 124/76. Provider Manfred Nina notified; clerical warehouse worker notified. Please see vital signs for full information.
[2025-05-12 00:49] VITALS: BP 90/50; PULSE 56; TEMP 36.3; O2SAT 99
[2025-05-12 07:00] VITALS: BMI 23.6
[2025-05-12 07:46] VITALS: BP 126/72; PULSE 102; TEMP 36.4; O2SAT 96
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
[2025-05-12 20:00] VITALS: BP 133/84; PULSE 84; RESP 16; TEMP 36.9; O2SAT 99
[2025-05-13 08:00] VITALS: BP 136/87; PULSE 96; RESP 14; TEMP 36.9; O2SAT 98
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
[2025-05-16 16:39] LABS: Vitamin D 25-OH, D2 <4 ng/mL; Vitamin D 25-OH, D3 16 ng/mL; Vitamin D 25-OH, Total 16 ng/mL (30-100)
== END 2025-05-13 11:08 | disposition home or self-care (01) | DRG 756 ==
LOC: HO.ED 22:21 → HO.PM5 05-09 16:26
PROVIDERS: Nurse Practitioner Psychiatric/Mental Health; Physician Assistant Medical; Admitting Provider Clinical Nurse Specialist Psychiatric/Mental Health, Adult; Emergency Provider Emergency Medicine; PCP Nurse Practitioner Family; Visit Provider Clinical Nurse Specialist Psychiatric/Mental Health, Adult
DX: F41.1 Generalized anxiety disorder (principal); R45.851 Suicidal ideations; F43.10 Post-traumatic stress disorder, unspecified; G47.00 Insomnia, unspecified; Y90.6 Blood alcohol level of 120-199 mg/100 ml; I10 Essential (primary) hypertension; Z91.410 Personal history of adult physical and sexual abuse; Z79.899 Other long term (current) drug therapy
CPT/HCPCS: 36415; 80048; 80053; 80061; 80143; 80179; 80307; 81003; 81025; 82306; 82607; 82746; 82947; 83036; 83735; 84132; 84439; 84443; 85025; 99285; S9485

== ENCOUNTER → 2025-05-09 15:44 | Outpatient (BNV) | payer BC, SELFPAY | PROVIDERS: Admitting Provider Clinical Nurse Specialist Psychiatric/Mental Health, Adult; Emergency Provider Emergency Medicine; PCP Nurse Practitioner Family; Visit Provider Nurse Practitioner Psychiatric/Mental Health | DX: F41.1 Generalized anxiety disorder (principal); F43.11 Post-traumatic stress disorder, acute; R45.851 Suicidal ideations; G47.00 Insomnia, unspecified; I10 Essential (primary) hypertension | CPT/HCPCS: 90792; 99231; 99232; 99238 ==

== ENCOUNTER → 2025-05-09 15:44 | Outpatient (BNV) | payer BC, SELFPAY | PROVIDERS: Admitting Provider Clinical Nurse Specialist Psychiatric/Mental Health, Adult; Emergency Provider Emergency Medicine; PCP Nurse Practitioner Family; Visit Provider Nurse Practitioner Family | DX: I10 Essential (primary) hypertension (principal) | CPT/HCPCS: 99253 ==